=== PATIENT | male | born 1960 | race Caucasian/White ===

== ENCOUNTER → 2023-12-12 | Outpatient (CLI) | payer OTHER ==
[~2023-12-12] MED LIST: ANAPROX DS550 MG PO; BENADRYL25 M2 PO; CYCLOBENZAPRINE5 M3 PO; HYDROCODONE BIT1 T11 PO; NAPROSYN500 MG PO; PRAVACHOL40 MG PO; PREDNICOT20 MG PO; TRAMADOL HCL50 MG PO
== END | disposition home or self-care (01) ==
LOC: RAD 10:34
PROVIDERS: ATTEND Chiropractor
DX: M25.551 Pain in right hip (principal); M54.50 Low back pain, unspecified